=== PATIENT | female | born 1985 | race Caucasian/White ===

== ENCOUNTER 2017-04-24 09:40 | Outpatient (CLI) ==
[2016-06-13 05:51] VITALS: BMI 24.3
--- NOTE | 2017-04-24 10:34 | US ---
EXAM: Right breast ultrasound. History: Right breast pain. Technique: Multiple sonographic images through the right breast were obtained. Color duplex Doppler was used to interrogate vascular flow. Findings: No masses, cysts or fluid collections are identified. Impression: No sonographic evidence of malignancy. Follow-up with ACR/ACS guidelines. BIRADS 2
--- NOTE | 2017-04-24 10:36 | MAMMO ---
EXAM: Bilateral digital screening mammogram History: Right breast pain. Findings: MLO and CC views of bilateral breasts demonstrate scattered fibroglandular breast parenchy ma. There are no dominant masses, no suspicious microcalcifications and no architectural distortions . Benign bilateral axillary lymph nodes. Impression: Although no sonographic abnormalities identified to correlate with the right breast pain , recommend further evaluation with right breast ultrasound. BIRADS 0
== END 2017-04-24 09:41 | disposition home or self-care (01) ==
LOC: RAD 09:40
PROVIDERS: ATTEND Obstetrics & Gynecology
DX: N64.4 Mastodynia (principal)

== ENCOUNTER 2018-06-12 11:00 | Outpatient (POV) ==
[2016-06-13 05:51] VITALS: BMI 24.3
== END 2018-06-12 17:00 ==
LOC: OUTPT 11:00
PROVIDERS: ATTEND Otolaryngology
DX: H69.80 Other specified disorders of Eustachian tube, unspecified ear (principal)